=== PATIENT | female | born 1950 | race Two or more races ===

== ENCOUNTER 2021-06-24 22:58 | Inpatient (IN) | payer MEDICARE, MEDICAID ==
[~2021-06-24] VITALS: Ht 154.9 cm; Wt 73.5 kg
[2021-06-25] MEDS ORDERED: ACETAMINOPHEN 500 MG TAB PO ONE (01:00)
[2021-06-25] MEDS ORDERED: METOCLOPRAMIDE HCL 5MG/ml INJ 2ml VIAL IV ONE (02:15)
[2021-06-25] MEDS ORDERED: SODIUM CHLORIDE 0.9% 1,000 ML IV ONE (02:15)
[2021-06-25] MEDS ORDERED: KETOROLAC TROMETH 30 MG/ML 1ML VIAL IV ONE (02:15)
[2021-06-25] MEDS ORDERED: diphenhdrAMINE HCL 50 MG/1 ML VL IV ONE (02:15)
[2021-06-25 02:36] LABS: Basophils # (auto) 0 10 ^3/uL (0-0.2); Basophils % (auto) 0.3 % (0.0-2.0); Eosinophils # (auto) 0 10 ^3/uL (0-0.8); Hematocrit 43.1 % (36.0-46.0); Hemoglobin 14.4 g/dL (12.2-16.2); Lymphocytes # (auto) 2.2 10 ^3/uL (0.4-5.4); Lymphocytes % (auto) 19.3 % (10.0-50.0); Mean Corpuscular Hemoglobin 30.8 pg (28.0-32.0); Mean Corpuscular Hgb Conc. 33.5 g/dL (32.0-36.0); Mean Corpuscular Volume 91.8 fL (80.0-100.0); Monocytes # (auto) 0.3 10 ^3/uL (0-1.3); Neutrophils # (auto) 8.8 10 ^3/uL (1.6-8.6); Neutrophils % (auto) 77.4 % (37.0-80.0); Nucleated Red Blood Cells % 0.1 %; Red Blood Cells 4.69 10^6/uL (4.0-5.20); Red Cell Distribution Width 13.3 % (11.8-14.3); White Blood Cell 11.4 10^3/uL (4.4-10.8)
[2021-06-25 02:53] LABS: Albumin 3.8 g/dL (3.4-5.0); BUN/Creatinine Ratio 34.3; Calcium 8.7 mg/dL (8.5-10.1); Potassium 3.8 mmol/L (3.5-5.1)
[2021-06-25 02:58] LABS: Bilirubin, Total 0.6 mg/dL (0.2-1.0); Total Protein 8.8 g/dL (6.4-8.2)
[2021-06-25] MEDS ORDERED: MORPHINE SULFATE INJECTION 2 MG/ML SYRG IV PRN (05:30)
[2021-06-25] MEDS ORDERED: TEMAZEPAM 15 MG CAP PO PRN (05:30)
[2021-06-25] MEDS ORDERED: NITROGLYCERIN 0.4 MG SL TAB SL PRN (05:30)
[2021-06-25] MEDS ORDERED: ASPirin 325 MG TAB PO ONE (08:15)
[2021-06-25] MEDS ORDERED: FUROSEMIDE 40 MG/4 ML VIAL IV ONE (09:30)
[2021-06-25] MEDS: PANTOPRAZOLE 40 MG TAB PO SCH (09:38)
[2021-06-25] MEDS: ENOXAPARIN SOD 40 MG/0.4 ML SYRINGE SC SCH (09:38)
[2021-06-25] MEDS: LOSARTAN POTASSIUM 25 MG TAB PO SCH (10:00)
[2021-06-25] MEDS ORDERED: HCTZ 25 MG TAB PO SCH (10:00)
[2021-06-25] MEDS ORDERED: LOSARTAN POTASSIUM 50 MG TAB PO SCH (10:00)
[2021-06-25 10:02] LABS: Magnesium 2.4 mg/dL (1.6-2.6)
[2021-06-25] MEDS: METOPROLOL TARTRATE 25 MG TAB PO SCH ×2 (12:42→22:42)
[2021-06-25] MEDS ORDERED: ATORVASTATIN 20 MG TAB PO ONE (15:00)
[2021-06-25] MEDS: ACETAMINOPHEN 325 MG TAB PO PRN (16:38)
[2021-06-25] MEDS: FUROSEMIDE 20 MG/2 ML VIAL IV SCH (19:24)
[2021-06-25] MEDS ORDERED: ATORVASTATIN 20 MG TAB PO SCH (22:00)
[2021-06-26 05:30] VITALS: BP 125/89
[2021-06-26] MEDS: FUROSEMIDE 20 MG/2 ML VIAL IV SCH (06:07)
[2021-06-26 06:24] LABS: Basophils # (auto) 0 10 ^3/uL (0-0.2); Basophils % (auto) 0.4 % (0.0-2.0); Eosinophils # (auto) 0.1 10 ^3/uL (0-0.8); Eosinophils % (auto) 1.3 % (0.0-7.0); Hematocrit 41.1 % (36.0-46.0); Hemoglobin 13.5 g/dL (12.2-16.2); Lymphocytes # (auto) 2.5 10 ^3/uL (0.4-5.4); Lymphocytes % (auto) 37.9 % (10.0-50.0); Mean Corpuscular Hemoglobin 29.8 pg (28.0-32.0); Mean Corpuscular Hgb Conc. 32.7 g/dL (32.0-36.0); Mean Corpuscular Volume 91.1 fL (80.0-100.0); Monocytes # (auto) 0.6 10 ^3/uL (0-1.3); Monocytes % (auto) 9.5 % (0.0-12.0); Neutrophils # (auto) 3.3 10 ^3/uL (1.6-8.6); Neutrophils % (auto) 50.9 % (37.0-80.0); Red Blood Cells 4.52 10^6/uL (4.0-5.20); Red Cell Distribution Width 13.1 % (11.8-14.3); White Blood Cell 6.5 10^3/uL (4.4-10.8)
[2021-06-26 06:40] LABS: BUN/Creatinine Ratio 28.9; Potassium 3.4 mmol/L (3.5-5.1)
[2021-06-26 09:00] VITALS: BP 136/83
[2021-06-26] MEDS: ASPirin 81 mg TAB PO SCH (10:13)
[2021-06-26] MEDS: PANTOPRAZOLE 40 MG TAB PO SCH (10:18)
[2021-06-26] MEDS: LOSARTAN POTASSIUM 25 MG TAB PO SCH (10:18)
[2021-06-26] MEDS: METOPROLOL TARTRATE 25 MG TAB PO SCH ×2 (10:18→21:11)
[2021-06-26] MEDS: ENOXAPARIN SOD 40 MG/0.4 ML SYRINGE SC SCH (10:19)
[2021-06-26] MEDS ORDERED: POTASSIUM CHL 20 Meq TABLET PO ONE (12:45)
[2021-06-26] MEDS: ACETAMINOPHEN 325 MG TAB PO PRN ×2 (12:45→19:43)
[2021-06-26 13:14] VITALS: BP 137/86
[2021-06-26 17:00] VITALS: BP 138/77
[2021-06-26 17:58] VITALS: BP 137/86
[2021-06-26 21:54] VITALS: BP 111/69
[2021-06-27 04:54] VITALS: BP 126/82
[2021-06-27 07:32] LABS: BUN/Creatinine Ratio 33.8
[2021-06-27 09:00] VITALS: BP 144/86
[2021-06-27] MEDS: ASPirin 81 mg TAB PO SCH (09:53)
[2021-06-27] MEDS: METOPROLOL TARTRATE 25 MG TAB PO SCH (09:57)
[2021-06-27] MEDS: PANTOPRAZOLE 40 MG TAB PO SCH (09:57)
[2021-06-27] MEDS ORDERED: LOSARTAN POTASSIUM 25 MG TAB PO SCH (10:00)
[2021-06-27 13:00] VITALS: BP 125/75
[2021-06-27 17:45] VITALS: BP 123/78
== END 2021-06-27 16:00 | disposition home or self-care (01) | DRG 280 ==
LOC: ER 22:58 → TELE 06-25 05:21 → TELE-WESTW 06-25 22:25
PROVIDERS: ADMIT Nurse Practitioner; ATTEND Internal Medicine
DX: I16.0 Hypertensive urgency (principal); I21.A1 Myocardial infarction type 2; I50.31 Acute diastolic (congestive) heart failure; I11.0 Hypertensive heart disease with heart failure; R73.03 Prediabetes; E78.5 Hyperlipidemia, unspecified; G43.909 Migraine, unspecified, not intractable, without status migrainosus; I70.0 Atherosclerosis of aorta; Z20.822 Contact with and (suspected) exposure to COVID-19
CPT/HCPCS: 36415; 71045; 80048; 80053; 80061; 83036; 83735; 83880; 84443; 84484; 85025; 87426; 93005; 93306; 96361; 96374; 96375; G0378; J1885

== ENCOUNTER 2021-07-04 11:30 | Inpatient (IN) | payer MEDICARE, MEDICAID ==
[~2021-07-04] VITALS: Ht 152.4 cm; Wt 70.3 kg
[2021-07-04 12:15] LABS: Basophils # (auto) 0 10 ^3/uL (0-0.2); Basophils % (auto) 0.3 % (0.0-2.0); Eosinophils # (auto) 0 10 ^3/uL (0-0.8); Eosinophils % (auto) 0.1 % (0.0-7.0); Hematocrit 41.8 % (36.0-46.0); Hemoglobin 13.8 g/dL (12.2-16.2); Lymphocytes # (auto) 0.9 10 ^3/uL (0.4-5.4); Mean Corpuscular Volume 90.9 fL (80.0-100.0); Monocytes # (auto) 0.3 10 ^3/uL (0-1.3); Monocytes % (auto) 4.2 % (0.0-12.0); Neutrophils # (auto) 6.3 10 ^3/uL (1.6-8.6); Neutrophils % (auto) 83.4 % (37.0-80.0); White Blood Cell 7.6 10^3/uL (4.4-10.8)
[2021-07-04 12:30] LABS: Albumin 3.3 g/dL (3.4-5.0); Anion Gap 6 (5-15); Blood Urea Nitrogen 18 mg/dL (7-18); Calcium 8.8 mg/dL (8.5-10.1); Carbon Dioxide 23 mmol/L (21-32); Chloride 107 mmol/L (98-107); Glucose 122 mg/dL (74-106); Potassium 3.8 mmol/L (3.5-5.1); Sodium 136 mmol/L (136-145)
[2021-07-04] MEDS ORDERED: ONDANSETRON ODT 4 MG TAB PO ONE (12:30)
[2021-07-04 12:32] LABS: Alanine Aminotransferase 30 U/L (13-56); Aspartate Aminotransferase 21 U/L (15-37); BUN/Creatinine Ratio 29.5; GFR African American 125 mL/min; GFR Non-African American 103 mL/min
[2021-07-04 12:34] LABS: Alkaline Phosphatase 85 U/L (45-117); Bilirubin, Total 0.4 mg/dL (0.2-1.0); Total Protein 8.1 g/dL (6.4-8.2)
[2021-07-04] MEDS ORDERED: CLOPIDOGREL BISULFATE 75 MG TAB PO ONE ×2 (13:00→16:00)
[2021-07-04] MEDS ORDERED: ASPirin 325 MG TAB PO ONE (13:00)
[2021-07-04] MEDS ORDERED: LOSARTAN POTASSIUM 50 MG TAB PO ONE (15:00)
[2021-07-04] MEDS ORDERED: NITROGLYCERIN 0.4 MG SL TAB SL PRN (15:00)
[2021-07-04] MEDS ORDERED: METOPROLOL SUCCINATE XL 50 MG TAB PO ONE (15:00)
[2021-07-04] MEDS ORDERED: PANTOPRAZOLE 40 MG TAB PO ONE (15:00)
[2021-07-04] MEDS ORDERED: ASPirin 81 mg TAB PO ONE (15:00)
[2021-07-04] MEDS ORDERED: MORPHINE SULFATE INJECTION 2 MG/ML SYRG IV PRN (15:00)
[2021-07-04] MEDS ORDERED: ACETAMINOPHEN 500 MG TAB PO PRN (15:00)
[2021-07-04] MEDS ORDERED: HYDROcodone-ACET 5/325MG TAB PO PRN (15:00)
[2021-07-04 15:50] LABS: Urine Bacteria NONE SEEN /hpf (None Seen); Urine Blood Negative /uL (Negative); Urine Mucus FEW (None Seen); Urine Specific Gravity 1.026 (1.001-1.035); Urine WBC 2 /hpf (0 - 5)
[2021-07-04] MEDS: DexAMETHasone INJECTION 10 MG in D5W 5% 50 ML IV SCH (19:14)
[2021-07-04] MEDS ORDERED: LORazepam 2MG/ML-1ML VIAL IV PRN (19:15)
[2021-07-04] MEDS: SODIUM CHLORIDE 0.9% 1,000 ML IV SCH (19:15)
[2021-07-04] MEDS: METOCLOPRAMIDE HCL 10 MG TAB PO SCH (22:00)
[2021-07-04] MEDS: ATORVASTATIN 20 MG TAB PO SCH (22:00)
[2021-07-05] MEDS: MORPHINE SULFATE INJECTION 2 MG/ML SYRG IV PRN ×2 (00:13→00:49)
[2021-07-05] MEDS: ONDANSETRON HCL 4 MG/2 ML VIAL IV PRN (00:13)
[2021-07-05 02:31] VITALS: BP 132/75
[2021-07-05] MEDS ORDERED: ATOR10TA PO (02:51)
[2021-07-05] MEDS ORDERED: OMEP-434 PO (02:51)
[2021-07-05] MEDS ORDERED: LOSA25TA38 PO (02:51)
[2021-07-05] MEDS ORDERED: METO25TA5 PO (02:51)
[2021-07-05] MEDS: SODIUM CHLORIDE 0.9% 1,000 ML IV SCH ×2 (02:57→13:03)
[2021-07-05 05:23] VITALS: BP 122/60
[2021-07-05] MEDS: METOCLOPRAMIDE HCL 10 MG TAB PO SCH ×3 (06:02→21:36)
[2021-07-05 09:00] VITALS: BP 118/63
[2021-07-05] MEDS: ASPirin 81 mg TAB PO SCH (09:38)
[2021-07-05] MEDS: PANTOPRAZOLE 40 MG TAB PO SCH (09:38)
[2021-07-05] MEDS: LOSARTAN POTASSIUM 50 MG TAB PO SCH (09:38)
[2021-07-05] MEDS: METOPROLOL SUCCINATE XL 50 MG TAB PO SCH (09:39)
[2021-07-05] MEDS: DexAMETHasone INJECTION 10 MG in D5W 5% 50 ML IV SCH (11:28)
[2021-07-05 13:00] VITALS: BP 110/61
[2021-07-05 17:00] VITALS: BP 134/69
[2021-07-05] MEDS: ATORVASTATIN 20 MG TAB PO SCH (21:36)
[2021-07-05 22:00] VITALS: BP 123/74
[2021-07-06] MEDS: SODIUM CHLORIDE 0.9% 1,000 ML IV SCH ×2 (00:37→10:46)
[2021-07-06] MEDS: METOCLOPRAMIDE HCL 10 MG TAB PO SCH ×2 (04:55→13:13)
[2021-07-06 05:00] VITALS: BP 140/71
[2021-07-06] MEDS: ONDANSETRON HCL 4 MG/2 ML VIAL IV PRN (07:51)
[2021-07-06 08:00] VITALS: BP 142/65
[2021-07-06 09:00] VITALS: BP 145/82
[2021-07-06] MEDS: LOSARTAN POTASSIUM 50 MG TAB PO SCH (09:43)
[2021-07-06] MEDS: ASPirin 81 mg TAB PO SCH (09:43)
[2021-07-06] MEDS: METOPROLOL SUCCINATE XL 50 MG TAB PO SCH (09:44)
[2021-07-06] MEDS: PANTOPRAZOLE 40 MG TAB PO SCH (09:48)
[2021-07-06] MEDS: DexAMETHasone INJECTION 10 MG in D5W 5% 50 ML IV SCH (09:48)
[2021-07-06 13:00] VITALS: BP 145/81
[2021-07-06 16:36] VITALS: BP 138/68
[2021-07-06 17:00] VITALS: BP 120/81
== END 2021-07-06 17:30 | disposition home or self-care (01) | DRG 280 ==
LOC: ER 11:30 → TELE 14:46 → TELE-WESTW 07-05 02:32
PROVIDERS: ADMIT Internal Medicine; ATTEND Internal Medicine
DX: I16.0 Hypertensive urgency (principal); I21.A1 Myocardial infarction type 2; I67.83 Posterior reversible encephalopathy syndrome; I10 Essential (primary) hypertension; E66.9 Obesity, unspecified; E78.5 Hyperlipidemia, unspecified; Z68.30 Body mass index [BMI] 30.0-30.9, adult; K21.9 Gastro-esophageal reflux disease without esophagitis; G43.909 Migraine, unspecified, not intractable, without status migrainosus; Z20.822 Contact with and (suspected) exposure to COVID-19
CPT/HCPCS: 36415; 70551; 71046; 80053; 81001; 83605; 84484; 85025; 87081; 87426; 93005; 93886; 96365; 99291; G0378; J1100; J2405; J7060; Q0162